=== PATIENT | female | born 1960 | race Caucasian/White ===

== ENCOUNTER 2020-04-13 10:20 | Outpatient (CLI) | payer OTHER ==
--- NOTE | 2020-04-14 13:59 | Mammography Report ---
BILATERAL DIGITAL SCREENING MAMMOGRAM 3D/2D: 04/13/2020 CLINICAL: Routine screening. Comparison is made to exams dated: 03/30/2017 mammogram and 03/24/2016 mammogram - [facility]. There are scattered fibroglandular elements in both breasts. No significant masses, calcifications, or other findings are seen in either breast. There has been no significant interval change. IMPRESSION: NEGATIVE There is no mammographic evidence of malignancy. A 1 year screening mammogram is recommended. This exam was interpreted at Station ID: [id number]. NOTE: For mammograms, a report in lay terms will be sent to the patient. Approximately 15% of breast malignancies will not be visualized mammographically. In the management of a palpable breast mass, a negative mammogram must not discourage biopsy of a clinically suspicious lesion. Electronically Signed By: Petar Anthony acr/penrad:04/13/2020 11:10:01 ACR BI-RADS Category 1: Negative 3341F PARENCHYMAL PATTERN: (A) - The breast(s) demonstrate(s) scattered fibroglandular densities. BI-RADS CATEGORY: (1) - 1 RECOMMENDATION: (ANNUAL) - Recommend routine annual screening mammography. [id number] 1 year screening LATERALITY: (B)
== END 2020-04-13 10:21 | disposition home or self-care (01) ==
LOC: DI.N 10:20
DX: Z12.31 Encounter for screening mammogram for malignant neoplasm of breast (principal)
CPT/HCPCS: 77063; 77067

== ENCOUNTER 2020-05-14 08:12 | Outpatient (CLI) | payer OTHER ==
--- NOTE | 2020-05-14 10:43 | MRI Report ---
PROCEDURE: Shoulder LT W/O INDICATIONS: PAIN IN LT SHLDR TECHNIQUE: Noncontrast oblique coronal T2 fast spin echo with fat saturation, oblique sagittal T1 spin echo and T2 fast spin echo with fat saturation, axial T1 spin echo and T2 fast spin echo with fat saturation t hrough the shoulder. COMPARISON: None. FINDINGS: Image quality: Excellent. Rotator cuff: Distal supraspinatus tendinosis and low-grade articular and bursal surface partial-thic kness tear is seen extending to musculotendinous junction. Distal infraspinatus tendinosis is noted. Distal subscapularis tendon is intact. No full-thickness rotator cuff tendon rupture.. No significan t rotator cuff muscle atrophy on sagittal images. Bones and bursae: Mild edema involving greater tuberosity of humeral head near rotator cuff tendon in sertion is seen without discrete fracture line. [id number] acromioclavicular joint osteoarthrit ic changes are seen. Mild glenohumeral joint osteoarthritic changes also noted. The acromion demonstr ates conventional anatomy, without an os acromiale. No pathologic subacromial/subdeltoid bursal flui d is present. Capsule and soft tissues: In the absence of intra-articular contrast, the labrum and glenohumeral li gaments appear intact. The long head of the biceps tendinosis is noted. The rotator interval appear s normal, without fibrosis. The coracohumeral ligament is normal in thickness. IMPRESSION: 1. Tendinosis and low-grade articular and bursal surface partial-thickness tear involving distal supr aspinatus at its insertion on humeral head extending to musculotendinous junction. Distal infraspinat us tendinosis. 2. Mild to moderate acromioclavicular joint and glenohumeral joint osteoarthritis. Nonspecific edema involving superior lateral humeral head near rotator cuff tendon insertion. No fracture or dislocatio n. 3. No gross focal labral tear in the absence of intra-articular contrast. 4. Proximal intra-articular portion of long head of biceps tendinosis. Reviewed by: Oscar Lowery MD on 05/14/2020 9:42 AM AKST Approved by: Oscar Lowery MD on 05/14/2020 9:42 AM [place] Station ID: [id number]
== END 2020-05-14 08:13 | disposition home or self-care (01) ==
LOC: DI 08:12
PROVIDERS: ATTEND Orthopaedic Surgery
DX: M19.012 Primary osteoarthritis, left shoulder (principal); M75.102 Unspecified rotator cuff tear or rupture of left shoulder, not specified as traumatic; M75.82 Other shoulder lesions, left shoulder

== ENCOUNTER 2021-04-19 10:26 | Outpatient (CLI) | payer OTHER ==
--- NOTE | 2021-04-20 08:20 | Mammography Report ---
BILATERAL DIGITAL SCREENING MAMMOGRAM 3D/2D: 04/19/2021 CLINICAL: Routine screening. Comparison is made to exams dated: 04/13/2020 mammogram - [facility], 03/30/2017 ma mmogram, and 03/24/2016 mammogram - [facility]. There are scattered fibroglandular el ements in both breasts. No significant masses, calcifications, or other findings are seen in either breast. There has been no significant interval change. IMPRESSION: NEGATIVE There is no mammographic evidence of malignancy. A 1 year screening mammogram is recommended. This exam was interpreted at Station ID: [id number]. NOTE: For mammograms, a report in lay terms will be sent to the patient. Approximately 15% of breast malignancies will not be visualized mammographically. In the management of a palpable breast mass, a negative mammogram must not discourage biopsy of a clinically suspicious lesion. Electronically Signed By: Petar Anthony acr/penrad:04/19/2021 15:22:37 ACR BI-RADS Category 1: Negative 3341F PARENCHYMAL PATTERN: (A) - The breast(s) demonstrate(s) scattered fibroglandular densities. BI-RADS CATEGORY: (1) - 1 RECOMMENDATION: (ANNUAL) - Recommend routine annual screening mammography. [id number] 1 year screening LATERALITY: (B)
== END 2021-04-19 10:27 | disposition home or self-care (01) ==
LOC: DI.N 10:26
DX: Z12.31 Encounter for screening mammogram for malignant neoplasm of breast (principal)

== ENCOUNTER 2024-02-14 14:29 | Outpatient (CLI) | payer OTHER ==
--- NOTE | 2024-02-15 10:50 | DEXA Report ---
PROCEDURE: Dexa Spine and/or Hip INDICATIONS: POST MENOPAUSAL TECHNIQUE: Dual energy x-ray absorptiometry (DXA) was performed on a Sense[employer] System. Regions measur ed are the AP Spine, femoral neck, and if needed forearm. COMPARISON: None FINDINGS: Lumbar Spine: Bone Mineral Density: 0.880 g/cm/cm,T score: -2.5. Osteoporosis Left Femoral Neck: Bone Mineral Density: 0.714 g/cm/cm, T score: -2.3, osteopenia. Left Hip: Bone Mineral Density: 0.677 g/cm/cm,T score: -2.6, osteoporosis. FRAX risk factors: Not applicable due to low T score (T score greater or equal to -1.0: NORMAL) (T score from -1.1 to -2.4: OSTEOPENIA) (T score less than or equal to -2.5 to: OSTEOPOROSIS) Impression: By WHO criteria, this patient has osteoporosis. Patients with diagnosis of osteoporosis or osteopenia should have regular bone mineral density assess ment. For those eligible for Medicare, routine testing is allowed once every 2 years. Testing frequ ency can be increased for patients who have rapidly progressing disease or for those who are receivin g medical therapy to restore bone mass. Reviewed by: Lynda Nuñez MD on 02/15/2024 10:49 AM PDT Approved by: Lynda Nuñez MD on 02/15/2024 10:49 AM PDT Station ID: [id number]
== END 2024-02-14 14:30 | disposition home or self-care (01) ==
LOC: DI 14:29
PROVIDERS: ATTEND Nurse Practitioner Family
DX: Z13.820 Encounter for screening for osteoporosis (principal); Z78.0 Asymptomatic menopausal state; M81.0 Age-related osteoporosis without current pathological fracture